=== PATIENT | female | born 1945 | race Caucasian/White ===

== ENCOUNTER → 2020-09-26 | Day surgery (SDC) | payer MEDICARE, OTHER ==
[~2020-09-26] MED LIST: AMLODIPINE BESYL5 MG PO; BALANCED SALT SOLN (OPTH) 15 ML BTL IO ONE; DIOVAN160 MG PO; GLUCOSAMINE CH1 EAC2 PO; LIDOCAINE 2% /EPINEPHRINE 20 ML SDV INJ ONE; MAGNESIUM PO; MULTIVITAMINS1 EAC7 PO; NEOMYCIN/POLYMYXIN/DEX (OPTH) 3.5 GM TUBE ONE; POVIDONE IODINE 5% (OPTH) 30 ML BTL ONE; PROPOFOL IV EMULSION 10 MG/ML 20 ML VIAL ONE; TRAZODONE PO; VITAMIN C1000 MG PO; VITAMIN D32000 UNI2 PO
[2020-09-26 16:50] VITALS: BP 146/74
== END | disposition home or self-care (01) ==
LOC: OR 11:57
PROVIDERS: ATTEND Ophthalmology
DX: H02.834 Dermatochalasis of left upper eyelid (principal); H02.831 Dermatochalasis of right upper eyelid; I10 Essential (primary) hypertension; K21.9 Gastro-esophageal reflux disease without esophagitis; Z88.8 Allergy status to other drugs, medicaments and biological substances; Z88.6 Allergy status to analgesic agent; Z91.041 Radiographic dye allergy status; Z01.812 Encounter for preprocedural laboratory examination; Z20.822 Contact with and (suspected) exposure to COVID-19
CPT/HCPCS: 15823; J2001; U0002